=== PATIENT | female | born 1985 | race American Indian/Alaskan Native ===

== ENCOUNTER 2017-08-11 12:15 | Outpatient (CLI) | payer MEDICAID ==
[2017-08-11 12:28] VITALS: BP 126/89
== END 2017-08-11 13:23 | disposition home or self-care (01) ==
LOC: TRG 12:15
PROVIDERS: ATTEND Obstetrics & Gynecology
DX: O47.1 False labor at or after 37 completed weeks of gestation (principal); Z3A.38 38 weeks gestation of pregnancy
CPT/HCPCS: 59025

== ENCOUNTER 2017-08-11 20:10 | Inpatient (IN) | payer MEDICAID ==
[2017-08-11] MEDS ORDERED: LACTATED RINGERS 1,000 ML IV ONE (20:34)
[2017-08-11] MEDS ORDERED: BRETHINE IVP PRN (21:22)
[2017-08-11] MEDS ORDERED: BRETHINE SUB-Q PRN (21:22)
[2017-08-11] MEDS ORDERED: XYLOCAINE 2% INFILTRATI ONE (21:22)
[2017-08-11] MEDS ORDERED: MINERAL OIL PO PRN (21:22)
[2017-08-11] MEDS ORDERED: SUBLIMAZE IV PRN (21:22)
[2017-08-11] MEDS ORDERED: PHENERGAN PO PRN ×2 (21:22→23:28)
[2017-08-11] MEDS ORDERED: ePHEDrine SULFATE IV PRN ×2 (21:22→22:45)
[2017-08-11] MEDS ORDERED: STADOL IV PRN (21:22)
[2017-08-11] MEDS ORDERED: ZOFRAN IV PRN ×2 (21:22→23:28)
--- NOTE | 2017-08-11 21:28 | History and Physical Report ---
History of Present Illness Date of examination: 08/11/17 Chief complaint: Labor History of present illness: Pt is a 32yo BF EDC 08/20/17; EGA 38 5/7 weeks presents to L&D complaining of RUC's q 3-5 mins. She received late care at [facility] since 32 weeks and being followed by [facility]. records are available and GBS is Negative. Past History Past Medical History: no pertinent history Past Surgical History: no surgical history Family/Genetic History: hypertension Social history: no significant social history, - Obstetrical History Expected Date of Delivery: 08/20/17 Actual Gestation: 38 Week(s) 5 Day(s) : 11 Medications and Allergies Allergies Allergy/AdvReac Type Severity Reaction Status Date / Time No Known Allergies Allergy Verified 08/11/17 20:15 Home Medications Medication Instructions Recorded Confirmed Last Taken Type Docusate Sodium [Colace] 100 mg PO BID #60 capsule 05/21/13 Unknown Rx Ferrous Sulfate [Feosol 325 MG tab] 325 mg PO BID #60 tablet 05/21/13 Unknown Rx Active Meds: Active Medications Butorphanol Tartrate (Stadol) 2 mg IV Q2H PRN PRN Reason: Pain , Severe (7-10) Ephedrine Sulfate (Ephedrine Sulfate) 10 mg IV Q2M PRN PRN Reason: Hypotension Fentanyl (Sublimaze) 100 mcg IV Q2H PRN PRN Reason: Labor Pain Lactated Ringer's (Lactated Ringers) 1,000 mls @ 999 mls/hr IV BOLUS ONE Stop: 08/11/17 21:34 Last Admin: 08/11/17 21:01 Dose: 999 mls/hr Lactated Ringer's (Lactated Ringers) 1,000 mls @ 125 mls/hr IV DIRECT ESTRADA Oxytocin/Sodium Chloride (Pitocin/Ns 20 Unit/1000ml Drip) 20 units in 1,000 mls @ 125 mls/hr IV DIRECT ESTRADA Oxytocin/Sodium Chloride (Pitocin/Ns 30 Unit/500ml) 30 units in 500 mls @ 4 mls /hr IV TITR ESTRADA PRN Reason: Protocol Oxytocin/Sodium Chloride (Pitocin/Ns 30 Unit/500ml) 30 units in 500 mls @ 1 mls /hr IV TITR ESTRADA; 1 MILLIUNITS/MIN PRN Reason: Protocol Lidocaine (Xylocaine 2%) 20 ml INFILTRATI ONCE ONE Stop: 08/11/17 21:23 Mineral Oil (Mineral Oil) 30 ml PO QHS PRN PRN Reason: Constipation Ondansetron HCl (Zofran) 4 mg IV Q8H PRN PRN Reason: Nausea And Vomiting Review of Systems All systems: negative - Vital Signs Vital signs: Vital Signs Pulse BP 98 H 126/83 08/11/17 20:25 08/11/17 20:25 Temp Pulse Resp BP Pulse Ox 104 H 126/83 100 08/11/17 21:26 08/11/17 20:25 08/11/17 21:26 - Physical Exam Breasts: Positive: deferred Cardiovascular: Regular rate Lungs: Positive: Clear to auscultation Abdomen: Positive: normal appearance Genitourinary (Female): Positive: normal external genitalia Uterus: Positive: enlarged Extremities: Positive: normal - Obstetrical FHR: category 1 Uterine Contraction Monitor Mode: External Cervical Dilatation: 4.5 Cervical Effacement Percentage: 80 station: -2 Uterine Contraction Pattern: Regular Uterine Tone Measurement Phase: Contraction Uterine Contraction Intensity: Moderate Results Result Diagrams: 08/11/17 21:41 All other labs normal. Assessment and Plan - Patient Problems (1) 38 weeks gestation of Onset Date: 08/11/17 Current Visit: Yes Status: Acute Plan to address problem: A: IUP @ 38 5/7 weeks in labor Grand multigravida Insufficient care P: Admit to L&D for expectant vaginal delivery (2) Grand multipara in labor in third trimester Onset Date: 08/11/17 Current Visit: Yes Status: Acute
[2017-08-11 21:51] LABS: Hemoglobin 11.8 gm/dl (10.1-14.3); Mean Corpuscular HGB Conc 32 % (30-34); Mean Corpuscular Volume 78 fl (79-97); Platelet Count 406 K/mm3 (140-440); Red Blood Count 4.72 M/mm3 (3.65-5.03); Red Cell Distribution Width 15.9 % (13.2-15.2)
[2017-08-11 21:52] LABS: Mean Corpuscular Hemoglobin 25 pg (28-32)
[2017-08-11] MEDS ORDERED: PITOCin/NS 30 UNIT/500ML 30 UNITS/500 ML BAG IV SCH ×2 (22:00)
[2017-08-11] MEDS ORDERED: LACTATED RINGERS 1,000 ML IV SCH (22:00)
[2017-08-11] MEDS ORDERED: PITOCin/NS 20 UNIT/1000ML DRIP 20 UNITS/1,000 ML BAG IV SCH ×2 (22:00→23:45)
[2017-08-11] MEDS ORDERED: fentaNYL-BUPIV 2 MCG/ML-0.125% 200 MCG/100 ML BAG EPIDURAL ONE (22:25)
[2017-08-11] MEDS ORDERED: NARCAN 2 MG/2 ML IV PRN (22:45)
--- NOTE | 2017-08-11 22:45 | Anesthesia Consultation ---
Anesthesia Consult and Med Hx Date of service: 08/11/17 - Airway Anesthetic Teeth Evaluation: Good ROM Head & Neck: Adequate Mental/Hyoid Distance: Adequate Mallampati Class: Class II Intubation Access Assessment: Good - Pulmonary Exam CTA: Yes - Cardiac Exam Cardiac Exam: No Murmur - Pre-Operative Health Status ASA Pre-Surgery Classification: ASA2 Proposed Anesthetic Plan: Epidural - Pulmonary Hx Asthma: No - Cardiovascular System Hx Hypertension: No - Central Nervous System Hx Seizures: No Hx Psychiatric Problems: No - Endocrine Hx Renal Disease: No Hx Hypothyroidism: No Hx Hyperthyroidism: No - Hematic Hx Anemia: No Hx Sickle Cell Disease: No - Other Systems Hx Alcohol Use: No
[2017-08-11] MEDS ORDERED: fentaNYL-BUPIV 2 MCG/ML-0.125% 200 MCG/100 ML BAG EPIDURAL SCH (23:00)
--- NOTE | 2017-08-11 23:26 | Procedure Note ---
OB Delivery Note - Delivery Date of Delivery: 08/11/17 Surgeon: SUMEET OWUSU Estimated blood loss: 200cc - Vaginal Delivery presentation: vertex Delivery position: OA Intrapartum events: precipitous labor- <3hr Delivery induction: none Delivery augmentation: rupture of membranes Delivery monitor: external FHT, external uterine Route of delivery: Delivery placenta: spontaneous Delivery cord: 3 umbilical vessels Episiotomy: none Delivery laceration: none Anesthesia: epidural Delivery comments: Infant delivered OA and placed on Mom's chest for [id number] bonding and delayed cord clamping. - A at 1 minute: 8 at 5 minutes: 9 Infant Gender: Male (3078gms)
[2017-08-11] MEDS ORDERED: BENADRYL PO PRN (23:28)
[2017-08-11] MEDS ORDERED: DULCOLAX PR PRN (23:28)
[2017-08-11] MEDS ORDERED: TYLENOL PO PRN (23:28)
[2017-08-11] MEDS ORDERED: NORCO 5/325 PO PRN (23:28)
[2017-08-11] MEDS ORDERED: MILK OF MAGNESIA PO PRN (23:28)
[2017-08-11] MEDS ORDERED: TUCKS PAD TP PRN (23:28)
[2017-08-11] MEDS ORDERED: PHENERGAN PR PRN (23:28)
[2017-08-11] MEDS ORDERED: LANSINOH TP PRN (23:28)
[2017-08-11] MEDS ORDERED: SODIUM CHLORIDE FLUSH SYRINGE 10 ML IV NR (23:45)
[2017-08-12] MEDS: MOTRIN PO SCH ×3 (02:29→18:03)
[2017-08-12] MEDS: SENOKOT S PO SCH (02:29)
[2017-08-12] MEDS ORDERED: M-M-R II VACCINE SUB-Q ONE (06:00)
[2017-08-12] MEDS ORDERED: BOOSTRIX IM ONE (06:00)
--- NOTE | 2017-08-12 10:50 | Progress Note ---
Assessment and Plan PPD# 1 s/p NDSV -Doing well P: -Continue routine post care -Anticipate discharge in 24-48 hours - Patient Problems (1) (normal spontaneous vaginal delivery) Current Visit: Yes Status: Acute Subjective - Subjective Date of service: 08/12/17 Principal diagnosis: PPD#1 Interval history: Patient seen and examined, stable doing well no issues. Declined circumcision for Patient reports: appetite normal, voiding normally, pain well controlled, ambulating normally, no dizzy ambulation, no nauseated : doing well Objective - Vital Signs Latest vital signs: Vital Signs Temp Pulse Resp BP BP Pulse Ox 08/12/17 08:20 98.3 F 78 18 100/67 08/12/17 04:25 98.2 F 76 18 117/77 08/12/17 02:29 20 08/12/17 01:30 98.6 F 103 H 18 137/89 08/12/17 00:51 83 100 08/12/17 00:46 80 100 08/12/17 00:41 87 97 08/12/17 00:36 86 97 08/12/17 00:34 84 131/76 08/12/17 00:31 87 99 08/12/17 00:26 83 100 08/12/17 00:21 97 H 100 08/12/17 00:19 98 H 128/81 08/12/17 00:16 89 100 08/12/17 00:11 101 H 100 08/12/17 00:10 139 H 124/78 08/11/17 23:28 96 H 136/53 08/11/17 23:25 98.4 F 18 08/11/17 23:09 100 H 100 08/11/17 23:08 90 136/91 08/11/17 23:04 95 H 100 08/11/17 22:59 87 100 08/11/17 22:54 86 100 08/11/17 22:49 83 100 08/11/17 22:44 85 100 08/11/17 22:39 81 100 08/11/17 22:36 88 120/62 08/11/17 22:34 87 118/69 100 08/11/17 22:32 81 118/73 08/11/17 22:30 89 127/79 08/11/17 22:29 88 20 100 08/11/17 22:28 83 126/77 08/11/17 22:27 14 120/62 08/11/17 22:26 82 124/76 08/11/17 22:24 82 128/80 100 08/11/17 22:22 89 123/78 08/11/17 22:20 84 128/78 08/11/17 22:19 85 100 08/11/17 22:18 90 122/68 08/11/17 22:16 90 136/82 08/11/17 22:14 87 138/82 100 08/11/17 22:12 85 139/84 08/11/17 22:10 87 144/99 08/11/17 22:09 93 H 100 08/11/17 22:08 88 152/91 08/11/17 22:06 81 141/66 08/11/17 22:04 86 100 08/11/17 21:53 83 99 08/11/17 21:48 88 100 08/11/17 21:43 98.0 F 95 H 22 100 08/11/17 21:38 92 H 100 08/11/17 21:33 95 H 100 08/11/17 21:26 104 H 100 08/11/17 21:21 96 H 100 08/11/17 21:16 101 H 100 08/11/17 21:11 96 H 99 08/11/17 21:06 86 99 08/11/17 21:01 85 100 08/11/17 20:56 92 H 100 08/11/17 20:51 91 H 100 08/11/17 20:46 89 99 08/11/17 20:41 84 99 08/11/17 20:36 91 H 100 08/11/17 20:31 102 H 100 08/11/17 20:30 97 H 29 L 08/11/17 20:26 100 H 100 08/11/17 20:25 98 H 126/83 Intake and Output 08/11/17 08/12/17 08/12/17 23:59 07:59 15:59 Intake Total 240 240 Output Total 100 1900 Balance -100 -1660 240 Intake: Oral 240 240 Output: Urine 100 1900 Indwelling Catheter 100 500 Void 1400 Other: Total, Intake Amount 240 240 Total, Output Amount 100 600 Weight 63.503 kg Estimated Blood Loss 200 - Exam Abdomen: Present: normal appearance, soft. Absent: distention, tenderness, guarding, rigidity Uterus: Present: firm, fundal height below umbilicus. Absent: tenderness Extremities: Present: normal - Labs Labs: Abnormal lab results 08/11/17 Range/Units 21:41 WBC 12.0 H (4.5-11.0) K/mm3 MCV 78 L (79-97) fl MCH 25 L (28-32) pg RDW 15.9 H (13.2-15.2) %
--- NOTE | 2017-08-12 10:53 | Discharge Summary ---
Providers - Providers Date of Admission: 08/11/17 21:48 Date of discharge: 08/13/17 Attending physician: SUMEET OWUSU Primary care physician: SUMEET OWUSU Hospitalization Reason for admission: active labor, IUP at term Delivery: Episiotomy: none Laceration: none Other procedures: none complications: none Discharge diagnosis: IUP at term delivered [place] baby: male Hospital course: Uncomplicated hospital course Condition at discharge: Good Disposition: DC-01 TO HOME OR SELFCARE - Discharge Diagnoses (1) (normal spontaneous vaginal delivery) Status: Acute Plan - Discharge Medications Prescriptions: HYDROcodone/APAP 5-325 [[place] 5/325] 1 each PO Q6HR PRN #7 tablet PRN Reason: Pain Ibuprofen [Motrin 600 MG tab] 600 mg PO Q8H PRN #30 tablet PRN Reason: Pain Multivitamin with Iron [Multivitamins with Iron] 1 each PO DAILY #30 tablet - Provider Discharge Summary Activity: no sex for 6 weeks, no heavy lifting 4 weeks, no strenuous exercise Diet: routine Additional instructions: [] Smoking cessation referral if applicable(refer to patient education folder for contact #) [] Refer to [facility]'s [facility] Booklet Call your doctor immediately for: * Fever > 100.5 * Heavy vaginal bleeding ( >1 pad per hour) * Severe persistent headache * Shortness of breath * Reddened, hot, painful area to leg or breast * Drainage or odor from incision. * Keep incision clean and dry at all times and follow doctor's instructions regarding bathing/showering - Follow up plan Follow up: SUMEET OWUSU MD [Primary Care Provider] - 6 Weeks
[2017-08-12 12:36] LABS: Hematocrit 33.8 % (30.3-42.9); Hemoglobin 10.8 gm/dl (10.1-14.3)
[2017-08-12] MEDS: FEOSOL PO SCH ×2 (13:29→21:27)
[2017-08-12] MEDS: PRENATAL VITAMIN PO SCH (13:37)
[2017-08-12] MEDS: COLACE PO SCH (21:27)
[2017-08-13] MEDS: MOTRIN PO SCH ×3 (00:03→12:05)
[2017-08-13] MEDS: SENOKOT S PO SCH (00:09)
[2017-08-13] MEDS: PRENATAL VITAMIN PO SCH (10:30)
[2017-08-13] MEDS: FEOSOL PO SCH (12:06)
[2017-08-13] MEDS: COLACE PO SCH (12:06)
[2017-08-13 15:46] VITALS: BP 132/83
== END 2017-08-13 15:30 | disposition home or self-care (01) | DRG 775 ==
LOC: TRG 20:10 → LD 21:48 → OB 08-12 01:43
PROVIDERS: ADMIT Obstetrics & Gynecology; ATTEND Obstetrics & Gynecology
PROC: 10E0XZZ Delivery of Products of Conception, External Approach (ICD-10-PCS; principal; 2017-08-11)
PROC: 3E0R3BZ Introduction of Anesthetic Agent into Spinal Canal, Percutaneous Approach (ICD-10-PCS; 2017-08-11)
PROC: 00HU33Z Insertion of Infusion Device into Spinal Canal, Percutaneous Approach (ICD-10-PCS; 2017-08-11)
PROC: 3E0234Z Introduction of Serum, Toxoid and Vaccine into Muscle, Percutaneous Approach (ICD-10-PCS; 2017-08-12)
DX: O62.3 Precipitate labor (principal); Z3A.38 38 weeks gestation of pregnancy; Z37.0 Single live birth; Z23 Encounter for immunization; Z82.49 Family history of ischemic heart disease and other diseases of the circulatory system
CPT/HCPCS: 36415; 85014; 85018; 85027; 86592; 86850; 86900; 86901; 99211; A6250; G0463; J2590; J3010; J7120

== ENCOUNTER 2019-05-06 02:44 | Emergency (ER) | payer MEDICAID ==
[2019-05-06 03:38] VITALS: BP 133/92
== END 2019-05-06 06:00 | disposition left against medical advice (07) ==
LOC: ED 02:44
DX: Z53.21 Procedure and treatment not carried out due to patient leaving prior to being seen by health care provider (principal)

== ENCOUNTER 2020-08-05 15:02 | Outpatient (CLI) | payer MEDICAID ==
[2020-08-05 17:36] VITALS: BP 131/74
[2020-08-05 20:28] LABS: Alanine Aminotransferase 11 units/L (7-56); Albumin 3.3 g/dL (3.9-5); Blood Urea Nitrogen 6 mg/dL (7-17); Hemolysis Index 11
[2020-08-05 20:45] LABS: BUN/Creatinine Ratio 12
--- NOTE | 2020-08-06 07:41 | Ultrasound Report ---
Limited OB Ultrasound Biophysical profile HISTORY: DECREASED MOVEMENT - VICENTA. TECHNIQUE: Grayscale and color imaging performed. COMPARISON: No recent comparison exam FINDINGS: There is a single viable intrauterine gestation with cephalic presentation. VICENTA is 7.1 cm. Heart rate is 147 bpm. On biophysical profile, the fetus received a score of 2 out of 2 for breathing, movement, posture/ton e, and VICENTA. IMPRESSION: 1. Single viable intrauterine gestation. 2. Normal BPP. Signer Name: Jose He MD Signed: 08/05/2020 10:50 PM Workstation Name: [id number]
== END 2020-08-05 21:49 | disposition home or self-care (01) ==
LOC: TRG 15:02 → APU 15:06 → TRG 21:49
PROVIDERS: ATTEND Obstetrics & Gynecology
DX: O26.893 Other specified pregnancy related conditions, third trimester (principal); L29.9 Pruritus, unspecified; Z3A.37 37 weeks gestation of pregnancy
CPT/HCPCS: 36415; 59025; 76815; 76819; 80053; Q0177

== ENCOUNTER 2020-08-19 04:40 | Inpatient (IN) | payer MEDICAID ==
[2020-08-19 06:10] LABS: Amphetamine Screen,Urine PRESUMPTIVE NEGATIVE; Benzodiazepines Screen,Urine PRESUMPTIVE NEGATIVE; Cannabinoid Screen,Urine PRESUMPTIVE NEGATIVE; Cocaine Screen,Urine PRESUMPTIVE NEGATIVE; Methadone Screen,Urine PRESUMPTIVE NEGATIVE; Opiate Screen,Urine PRESUMPTIVE NEGATIVE
[2020-08-19 06:20] LABS: Bilirubin,Urine NEG (Negative); Blood,Urine NEG (Negative); Color,Urine Straw (Yellow); Mucus,Urine FEW /HPF; Protein,Urine <15 mg/dL mg/dL (Negative); RBC,Urine < 1.0 /HPF (0.0-6.0); Urobilinogen,Urine < 2.0 mg/dL (<2.0); WBC,Urine < 1.0 /HPF (0.0-6.0)
--- NOTE | 2020-08-19 07:21 | History and Physical Report ---
History of Present Illness Date of examination: 08/19/20 Date of admission: 08/19/2020 Chief complaint: LOF. History of present illness: Presented to triage d/t LOF. She has not had care this . LMP: Unknown. States her water broke around 0030, unknown if clear or not. Denies medical/surgical history. OBGYN hx: , X9, denies c-sections. States diagnosed with fibroids. Denies abnormal PAPs, and drug and alcohol use. Past History Past Medical History: no pertinent history Past Surgical History: no surgical history [employer]PA[employer] History: fibroids Family/Genetic History: none Social history: no significant social history - Obstetrical History Expected Date of Delivery: 09/02/20 Actual Gestation: 38 Week(s) 0 Day(s) : 12 Para: 9 Hx # Term Pregnancies: 9 Number of Pregnancies: 0 Spontaneous Abortions: 2 Induced : 0 Number of Living Children: 9 Medications and Allergies Allergies Allergy/AdvReac Type Severity Reaction Status Date / Time No Known Allergies Allergy Verified 08/11/17 20:15 Home Medications Medication Instructions Recorded Confirmed Last Taken Type HYDROcodone/APAP 5-325 [[place] 1 each PO Q6HR PRN #7 tablet 08/12/17 Unknown Rx 5/325] Ibuprofen [Motrin 600 MG tab] 600 mg PO Q8H PRN #30 tablet 08/12/17 Unknown Rx Multivitamin Tab [Multiple Vitamin 1 each PO QDAY 08/12/17 08/12/17 2 Days Ago History TAB (Theragran)] ~08/10/17 Multivitamin with Iron 1 each PO DAILY #30 tablet 08/12/17 Unknown Rx [Multivitamins with Iron] Review of Systems All systems: negative - Vital Signs Vital signs: Vital Signs Pulse BP 91 H 135/81 08/19/20 05:10 08/19/20 05:10 Temp Pulse Resp BP Pulse Ox 98.3 F 93 H 18 135/81 100 08/19/20 05:12 08/19/20 07:16 08/19/20 05:12 08/19/20 05:12 08/19/20 07:16 - Physical Exam Breasts: Positive: deferred Cardiovascular: Regular rate, Normal S1, Normal S2 Lungs: Positive: Normal air movement Abdomen: Positive: normal appearance, soft, normal bowel sounds. Negative: distention, tenderness Genitourinary (Female): Positive: normal external genitalia, normal perenium Vulva: both: normal Vagina: Positive: normal moisture. Negative: discharge Cervix: Negative: lesion, discharge Uterus: Positive: normal size, normal contour Adnexa: both: normal Anus/Rectum: Positive: normal perianal skin, heme negative. Negative: rectal mass, hemorrhoids Extremities: Positive: normal Deep Tendon Reflex Grade: Normal +2 - Obstetrical FHR: category 1 (Has had periods of category 2. BPP 6/8 (off for fluid). ) Uterine Contraction Monitor Mode: External Cervical Dilatation: 4 (Meconium noted on exam glove) Cervical Effacement Percentage: 80 station: -2 Uterine Contraction Pattern: Regular Uterine Tone Measurement Phase: Resting Uterine Contraction Intensity: Moderate Results All other labs normal. GBS UNKNOWN LABS DRAWN ON ADMISSION. Assessment and Plan 35 y.o. @ 38 wks, EDC 09/02/2020 based off u/s in triage on 12/15 AM. LOF,meconium, and ctxs. Cervical exam 80/-2. No care. Admit to labor and delivery. Orders placed. IV bolus started for epidural placement. Dr. Flores made aware. Anticipate . - Patient Problems (1) 38 to 41 weeks gestation of Onset Date: ~08/19/20 Current Visit: Yes Status: Acute Plan to address problem: Category 1 at this time with some intermittent category 2. Will continue to observe during labor. (2) No care in current Onset Date: ~08/19/20 Current Visit: Yes Status: Acute Qualifiers: Trimester: third trimester Qualified Code(s): O09.33 - Supervision of with insufficient care, third trimester Plan to address problem: UDS, labs, ordered. (3) Meconium in amniotic fluid Onset Date: ~08/19/20 Current Visit: Yes Status: Acute Plan to address problem: Will have [facility] nurse/team at delivery d/t meconium stained fluid.
[2020-08-19] MEDS ORDERED: ePHEDrine SULFATE 50 MG/1 ML INJ IV PRN (07:22)
[2020-08-19] MEDS ORDERED: METHYLERGONOVINE MALEATE 0.2 MG/ML VIAL IM PRN (07:22)
[2020-08-19] MEDS ORDERED: OXYTOCIN 10 UNIT/1 ML INJ IM PRN (07:22)
[2020-08-19] MEDS ORDERED: ACETAMINOPHEN 325 MG TAB PO PRN ×2 (07:22→10:29)
[2020-08-19] MEDS ORDERED: NALOXONE 0.4 MG/1 ML INJ IV PRN (07:22)
[2020-08-19] MEDS ORDERED: LIDOCAINE (2%) 20 MG/1 ML VIAL 20 ML MDV INFILTRATI NR (07:22)
[2020-08-19] MEDS ORDERED: LOPERAMIDE 2 MG CAP PO PRN (07:22)
[2020-08-19] MEDS ORDERED: ONDANSETRON 4 MG/2 ML INJ IV PRN ×2 (07:22→11:00)
[2020-08-19] MEDS ORDERED: CARBOPROST TROMETHAMINE 250 MCG/1 ML INJ IM PRN (07:22)
--- NOTE | 2020-08-19 07:25 | Ultrasound Report ---
ULTRASOUND OBSTETRIC INDICATION: Evaluate well-being COMPARISON: Limited obstetrical ultrasound, 08/05/2020 Findings: There is a single intrauterine . BPD = 9.0 cm = 36 weeks, 3 day(s). Head circumference = 33.6 cm = 38 weeks, 3 day(s). Abdominal circumference = 34.3 cm = 38 weeks, 1 day(s). Femur length = 7.6 cm = 38 weeks, 6 day(s). Overall estimated sonographic age = 38 weeks, 0 day(s). heart rate is 139 beats per minute. Estimated weight is 3408 grams position is cephalic. Placenta is anterior and grade 2 . Amniotic fluid volume appears subjectively decreased. VICENTA measures 3.2 cm. There is a fibroid within the anterior aspect of the uterus measuring 4.0 x 3.0 cm. Impression: 1. Single living intrauterine with estimated sonographic age of 38 weeks, 0 day(s). 2. Decreased amniotic fluid volume with VICENTA measuring 3.2 cm. Signer Name: Terri Owens MD Signed: 08/19/2020 7:20 AM Workstation Name: [id number]
--- NOTE | 2020-08-19 07:27 | Ultrasound Report ---
ULTRASOUND BIOPHYSICAL PROFILE INDICATION / CLINICAL INFORMATION: Evaluate well-being COMPARISON: Obstetrical ultrasound, 08/19/2020 FINDINGS: BREATHING MOVEMENT = 2 GROSS BODY MOVEMENT = 2 TONE = 2 QUALITATIVE AMNIOTIC FLUID VOLUME = 0 TOTAL BIOPHYSICAL SCORE = 6/8 AMNIOTIC FLUID INDEX (cm) = 3.2 PRESENTATION: Cephalic. HEART RATE (beats per minute): 141 IMPRESSION: 1. biophysical profile = 6/8. Amniotic fluid volume is noted to be decreased with VICENTA measuring 3.2 cm. Signer Name: Terri Owens MD Signed: 08/19/2020 7:22 AM Workstation Name: [id number]
[2020-08-19] MEDS ORDERED: ACETAMINOPHEN 500 MG TAB PO PRN ×2 (07:33→11:00)
[2020-08-19] MEDS ORDERED: fentaNYL 100 MCG/2 ML INJ IV PRN (08:00)
[2020-08-19] MEDS ORDERED: TERBUTALINE 1 MG/1 ML INJ SUB-Q PRN (08:00)
[2020-08-19] MEDS: LACTATED RINGERS 1,000 ML IV SCH ×2 (08:00→09:30)
[2020-08-19] MEDS ORDERED: PROMETHAZINE 25 MG TAB PO PRN ×2 (08:00→11:00)
[2020-08-19] MEDS ORDERED: OXYTOCIN DRIP 30 UNITS/500 ML BAG IV SCH (08:00)
[2020-08-19 08:17] LABS: Hematocrit 36.6 % (30.3-42.9); Hemoglobin 11.9 gm/dl (10.1-14.3); Mean Corpuscular HGB Conc 33 % (30-34); Mean Corpuscular Volume 83 fl (79-97); Platelet Count 470 K/mm3 (140-440); Red Blood Count 4.43 M/mm3 (3.65-5.03); Red Cell Distribution Width 15.9 % (13.2-15.2)
--- NOTE | 2020-08-19 09:16 | Progress Note ---
Assessment and Plan A: 35 y.o. @ 38 wks, no PNC, active labor. Cervical exam: 7.5/90/-1. P: Awaiting epidural placement. Anticipate . - Patient Problems (1) 38 to 41 weeks gestation of Onset Date: ~08/19/20 Current Visit: Yes Status: Acute (2) No care in current Onset Date: ~08/19/20 Current Visit: Yes Status: Acute Qualifiers: Trimester: third trimester Qualified Code(s): O09.33 - Supervision of with insufficient care, third trimester (3) Meconium in amniotic fluid Onset Date: ~08/19/20 Current Visit: Yes Status: Acute Subjective - Subjective Date of service: 08/19/20 (Pt feeling vaginal pressure) Principal diagnosis: No care, IUP @ 38 wks, Active labor Interval history: Presented to triage d/t LOF. She has not had care this . LMP: Unknown. States her water broke around 0030, unknown if clear or not. Denies medical/surgical history. OBGYN hx: , X9, denies c-sections. States diagnosed with fibroids. Denies abnormal PAPs, and drug and alcohol use. Patient reports: loss of fluid, movement normal, contractions, other (Vaginal pressure) Objective - Vital Signs Vital Signs: Vital Signs - 12hr 08/19/20 08/19/20 08/19/20 05:10 05:11 05:12 Temperature 98.3 F Pulse Rate 91 H 96 H 93 H Respiratory 18 Rate Blood Pressure 135/81 Blood Pressure 135/81 [Right] O2 Sat by Pulse 99 99 Oximetry 08/19/20 08/19/20 08/19/20 05:16 05:21 05:26 Temperature Pulse Rate 94 H 94 H 108 H Respiratory Rate Blood Pressure Blood Pressure [Right] O2 Sat by Pulse 99 99 100 Oximetry 08/19/20 08/19/20 08/19/20 05:31 05:36 05:41 Temperature Pulse Rate 101 H 108 H 96 H Respiratory Rate Blood Pressure Blood Pressure [Right] O2 Sat by Pulse 100 99 99 Oximetry 08/19/20 08/19/20 08/19/20 05:46 05:51 05:56 Temperature Pulse Rate 93 H 98 H 98 H Respiratory Rate Blood Pressure Blood Pressure [Right] O2 Sat by Pulse 99 99 99 Oximetry 08/19/20 08/19/20 08/19/20 06:01 06:06 06:11 Temperature Pulse Rate 93 H 92 H 100 H Respiratory Rate Blood Pressure Blood Pressure [Right] O2 Sat by Pulse 99 99 99 Oximetry 08/19/20 08/19/20 08/19/20 06:15 06:16 06:21 Temperature Pulse Rate 115 H 94 H 107 H Respiratory Rate Blood Pressure Blood Pressure [Right] O2 Sat by Pulse 94 99 100 Oximetry 08/19/20 08/19/20 08/19/20 06:26 06:31 06:36 Temperature Pulse Rate 93 H 96 H 90 Respiratory Rate Blood Pressure Blood Pressure [Right] O2 Sat by Pulse 100 100 100 Oximetry 08/19/20 08/19/20 08/19/20 06:41 06:46 06:51 Temperature Pulse Rate 103 H 92 H 95 H Respiratory Rate Blood Pressure Blood Pressure [Right] O2 Sat by Pulse 99 100 100 Oximetry 08/19/20 08/19/20 08/19/20 06:56 07:01 07:06 Temperature Pulse Rate 102 H 105 H 109 H Respiratory Rate Blood Pressure Blood Pressure [Right] O2 Sat by Pulse 99 100 98 Oximetry 08/19/20 08/19/20 08/19/20 07:11 07:16 07:21 Temperature Pulse Rate 96 H 93 H 105 H Respiratory Rate Blood Pressure Blood Pressure [Right] O2 Sat by Pulse 100 100 98 Oximetry 08/19/20 08/19/20 08/19/20 07:26 07:31 07:35 Temperature Pulse Rate 105 H 95 H 95 H Respiratory Rate Blood Pressure Blood Pressure [Right] O2 Sat by Pulse 100 100 92 Oximetry 08/19/20 08/19/20 08/19/20 07:36 07:41 07:46 Temperature Pulse Rate 100 H 108 H 110 H Respiratory Rate Blood Pressure Blood Pressure [Right] O2 Sat by Pulse 100 99 100 Oximetry 08/19/20 08/19/20 08/19/20 07:51 07:56 08:01 Temperature Pulse Rate 108 H 106 H 94 H Respiratory Rate Blood Pressure Blood Pressure [Right] O2 Sat by Pulse 100 100 99 Oximetry 08/19/20 08/19/20 08/19/20 08:06 08:11 08:16 Temperature Pulse Rate 88 83 86 Respiratory Rate Blood Pressure Blood Pressure [Right] O2 Sat by Pulse 96 98 98 Oximetry 08/19/20 08/19/20 08/19/20 08:21 08:26 08:31 Temperature Pulse Rate 89 87 97 H Respiratory Rate Blood Pressure Blood Pressure [Right] O2 Sat by Pulse 98 100 98 Oximetry 08/19/20 08/19/20 08/19/20 08:36 08:41 08:42 Temperature Pulse Rate 103 H 86 94 H Respiratory Rate Blood Pressure 129/76 Blood Pressure [Right] O2 Sat by Pulse 99 97 Oximetry 08/19/20 08/19/20 08/19/20 08:46 08:51 08:56 Temperature Pulse Rate 89 92 H 93 H Respiratory Rate Blood Pressure Blood Pressure [Right] O2 Sat by Pulse 99 100 100 Oximetry 08/19/20 08/19/20 08/19/20 09:01 09:06 09:11 Temperature Pulse Rate 101 H 109 H 114 H Respiratory Rate Blood Pressure Blood Pressure [Right] O2 Sat by Pulse 100 99 99 Oximetry - Exam Vulva: both: normal Uterus: Present: normal FHR: category 1 Uterine Contraction Monitor Mode: External Cervical Dilatation: 7.5 Cervical Effacement Percentage: 90 station: -1 Uterine Contraction Pattern: Regular Uterine Tone Measurement Phase: Resting Uterine Contraction Intensity: Moderate - Labs Labs: Abnormal Labs 08/19/20 07:35 WBC 11.3 H MCH 27 L RDW 15.9 H Plt Count 470 H Laboratory Results - last 24 hr 08/19/20 08/19/20 08/19/20 07:35 07:35 07:35 WBC 11.3 H RBC 4.43 Hgb 11.9 Hct 36.6 MCV 83 MCH 27 L MCHC 33 RDW 15.9 H Plt Count 470 H Urine Color Urine Turbidity Urine pH Ur Specific [place] Urine Protein Urine Glucose (UA) Urine Ketones Urine Blood Urine Nitrite Urine Bilirubin Urine Urobilinogen Ur Leukocyte Esterase Urine WBC (Auto) Urine RBC (Auto) U Epithel Cells (Auto) Urine Mucus Urine Opiates Screen Urine Methadone Screen Ur Barbiturates Screen Ur Phencyclidine Scrn Ur Amphetamines Screen U Benzodiazepines Scrn Urine Cocaine Screen U Marijuana (THC) Screen Drugs of Abuse Note HIV 1&2 Antibody Rapid Non react HIV P24 Antigen Non react Rubella IgG Antibody Immune Blood Type A POSITIVE Antibody Screen Negative 08/19/20 08/19/20 Unknown Unknown WBC RBC Hgb Hct MCV MCH MCHC RDW Plt Count Urine Color Straw Urine Turbidity Clear Urine pH 7.0 Ur Specific [place] 1.008 Urine Protein <15 mg/dl Urine Glucose (UA) Neg Urine Ketones Neg Urine Blood Neg Urine Nitrite Neg Urine Bilirubin Neg Urine Urobilinogen < 2.0 Ur Leukocyte Esterase Neg Urine WBC (Auto) < 1.0 Urine RBC (Auto) < 1.0 U Epithel Cells (Auto) 1.0 Urine Mucus Few Urine Opiates Screen Presumptive negative Urine Methadone Screen Presumptive negative Ur Barbiturates Screen Presumptive negative Ur Phencyclidine Scrn Presumptive negative Ur Amphetamines Screen Presumptive negative U Benzodiazepines Scrn Presumptive negative Urine Cocaine Screen Presumptive negative U Marijuana (THC) Screen Presumptive negative Drugs of Abuse Note Disclamer HIV 1&2 Antibody Rapid HIV P24 Antigen Rubella IgG Antibody Blood Type Antibody Screen
[2020-08-19] MEDS ORDERED: miSOPROStol 200 MCG TAB ONE (10:06)
[2020-08-19] MEDS: OXYTOCIN DRIP 30 UNITS/500 ML BAG IV SCH ×2 (10:06→11:43)
[2020-08-19] MEDS ORDERED: miSOPROStol 200 MCG TAB PR ONE (10:12)
--- NOTE | 2020-08-19 10:28 | Procedure Note ---
OB Delivery Note - Delivery Date of Delivery: 08/19/20 Compositor Apprentice: KATALINA COVARRUBIAS Estimated blood loss: 500cc - Vaginal Delivery presentation: vertex Delivery position: OA Intrapartum events: no care, meconium Delivery induction: none Delivery monitor: external FHT, external uterine Route of delivery: Delivery placenta: spontaneous Delivery cord: 3 umbilical vessels Episiotomy: none Delivery laceration: none Anesthesia: epidural Delivery comments: viable male over intact perineum. Infant to mother's chest for skin to skin. Cord cut and clamped and infant handed to [facility] team. Spontaneous delivery of placenta, intact, 3 vessels noted. Brisk bleeding noted after delivery. Stopped with Pitocin, Methergine IM, and rectal cytotec. Fundus firm with minimal bleeding after interventions. Perineum and vagina inspected, no lacerations noted. Sponges and instruments counted X 2 and correct X2. Infant and mother left in the care of the nurse in good condition. - Infant A at 1 minute: 8 at 5 minutes: 8 Gender: Male
[2020-08-19] MEDS ORDERED: LANOLIN/ZINC/DIMETHICONE (LANSINOH) 7 GM TP PRN ×2 (10:29→11:00)
[2020-08-19] MEDS ORDERED: diphenhydrAMINE 25 MG CAP PO PRN (11:00)
[2020-08-19] MEDS ORDERED: WITCH HAZEL/ GLYCERIN PAD TP PRN (11:00)
[2020-08-19] MEDS ORDERED: IBUPROFEN 800 MG TAB PO ONE (11:00)
[2020-08-19] MEDS ORDERED: IBUPROFEN 600 MG TAB PO SCH (11:00)
[2020-08-19] MEDS ORDERED: BENZOCAINE/MENTHOL 20/0.5% TOP SPRAY 56 GM TP PRN (11:00)
[2020-08-19] MEDS: IBUPROFEN 800 MG TAB PO SCH ×2 (11:57→18:15)
[2020-08-19 13:41] LABS: Hepatitis C Virus Antibody Non-Reactive (NonReactive)
--- NOTE | 2020-08-19 15:14 | Anesthesia Consultation ---
Anesthesia Consult and Med Hx Date of service: 08/19/20 - Airway Anesthetic Teeth Evaluation: Good ROM Head & Neck: Adequate Mental/Hyoid Distance: Adequate Mallampati Class: Class II Intubation Access Assessment: Probably Good - Pulmonary Exam CTA: Yes - Cardiac Exam Cardiac Exam: RRR - Pre-Operative Health Status ASA Pre-Surgery Classification: ASA2 Proposed Anesthetic Plan: Epidural - Pulmonary Hx Smoking: No Hx Asthma: No Hx Respiratory Symptoms: No SOB: No COPD: No Home Oxygen Therapy: No Hx Pneumonia: No Hx Sleep Apnea: No - Cardiovascular System Hx Hypertension: No Hx Coronary Artery Disease: No Hx Heart Attack/AMI: No Hx Angina: No Hx Percutaneous Transluminal Coronary Angioplasty (PTCA): No Hx Cardia Arrhythmia: No Hx Pacemaker: No Hx Internal Defibrillator: No Hx Valvular Heart Disease: No Hx Heart Murmur: No Hx Peripheral Vascular Disease: No - Central Nervous System Hx Neuromuscular Disorder: No Hx Seizures: No CVA: No Hx Back Pain: No Hx Psychiatric Problems: No - Gastrointestinal Hx Ulcer: No Hx Gastroesophageal Reflux Disease: No - Endocrine Hx Renal Disease: No Hx End Stage Renal Disease: No Hx Cirrhosis: No Hx Liver Disease: No Hx Insulin Dependent Diabetes: No Hx Non-Insulin Dependent Diabetes: No Hx Thyroid Disease: No Hx Hypothyroidism: No Hx Hyperthyroidism: No - Hematic Hx Anemia: No Hx Sickle Cell Disease: No - Other Systems Hx Alcohol Use: No Hx Substance Use: No Hx Cancer: No Hx Obesity: No
--- NOTE | 2020-08-19 15:19 | Progress Note ---
Labor Epidural - Labor Epidural Start Time: 09:15 Stop Time: :25 Performed by:: JEREMIAH BOLNAD Procedure: Patient is requesting a laboring epidural for laboring pain. Patient IDed, H&P reviewed, all questions and concerns were answered, and consent was signed. Timeout was performed at bedside. Patient in sitting position. Sterile prep and drape was performed. 3ml of 1% lidocaine skin wheal at L[3]- L [4]. 18- gauge Tuohy epidural needle was advanced to loss of resistance with air technique at 7cm. Negative CSF negative blood. Epidural catheter advanced to [12] centimeters. [negative] Aspiration [negative] test dose. Sterile dressing applied. Patient tolerated procedure.
--- NOTE | 2020-08-19 15:20 | Post Anesthesia Evaluation ---
- Post Anesthesia Evaluation Patient Participated: Yes Airway Patent: Yes Stable Respiratory Function: Yes Nausea/Vomiting: No Temp > 96.8F: Yes Pain Manageable: Yes Adequeate Hydration: Yes Anesthesia Complications: No Block Receding Appropriately: Yes Patient on Ventilator: No
[2020-08-19] MEDS ORDERED: MAGNESIUM HYDROXIDE (MOM) ORAL LIQD UDC PO PRN (22:00)
[2020-08-19] MEDS ORDERED: MINERAL OIL 30 ML ORAL LIQD PO PRN (22:00)
[2020-08-20] MEDS: DOCUSATE SODIUM 100 MG CAP PO SCH (00:01)
[2020-08-20 00:36] LABS: Hematocrit 32.3 % (30.3-42.9); Hemoglobin 10.6 gm/dl (10.1-14.3)
[2020-08-20] MEDS: IBUPROFEN 800 MG TAB PO SCH ×2 (06:08)
--- NOTE | 2020-08-20 06:09 | Discharge Summary ---
Providers - Providers Date of Admission: 08/19/20 08:05 Date of discharge: 08/20/20 (pt states she will f/u with [facility]) Attending physician: GABINO CASTRO 08/19/20 10:31 Consult to Case Management [CONS] Routine Services Needed at Discharge: Other Notified:: VICKI Comment:: MARTIN Additional Physician Instructions: No care. Make sure patient has all she needs for at home. Primary care physician: GABINO CASTRO Hospitalization Reason for admission: active labor, IUP at term, other (no care) Delivery: Episiotomy: none Laceration: none Incision: normal Other procedures: none complications: none Discharge diagnosis: IUP at term delivered baby: male Hospital course: uncomplicated vaginal delivery; grandmultip; no care Pt A&O caring for NB. Req d/c today if possible. States she will f/u with [facility]. VSS FF below umb Lochia mod Perineum intact H&H No s/sx of anemia. P: continue pathway d/c today with instructions if NB is cleared to go. Condition at discharge: Good Disposition: DC-01 TO HOME OR SELFCARE - Discharge Diagnoses (1) Spontaneous vaginal delivery Status: Acute Comment: follow up 4-6 weeks for PP care Plan - Provider Discharge Summary Activity: routine, no sex for 6 weeks, no heavy lifting 4 weeks, no strenuous exercise Diet: routine Instructions: routine Additional instructions: [] Smoking cessation referral if applicable(refer to patient education folder for contact #) [] Refer to [facility] Booklet Call your doctor immediately for: * Fever > 100.5 * Heavy vaginal bleeding ( >1 pad per hour) * Severe persistent headache * Shortness of breath * Reddened, hot, painful area to leg or breast * Drainage or odor from incision. * Keep incision clean and dry at all times and follow doctor's instructions regarding bathing/showering - Follow up plan Follow up: GABINO CASTRO MD [Primary Care Provider] - 6 Weeks (Please call and make arrangements to be seen in 4-6 weeks for your care. Motrin/ibuprofen for cramping/pain. Congratulations!)
[2020-08-20] MEDS ORDERED: PRENATAL VIT27-FE FUMARATE-FOLIC ACID VIT TAB PO SCH (10:00)
[2020-08-20] MEDS ORDERED: DIPHtheria,PERTUSSIS(ACELL),TETANUS VACCINE/PF 0.5 ML VIAL IM ONE (10:30)
[2020-08-21] MEDS: IBUPROFEN 800 MG TAB PO SCH ×3 (02:13→11:58)
[2020-08-21] MEDS: DOCUSATE SODIUM 100 MG CAP PO SCH ×2 (02:18→11:58)
[2020-08-21 15:45] VITALS: BP 118/73
== END 2020-08-21 15:50 | disposition home or self-care (01) | DRG 775 ==
LOC: TRG 04:40 → APU 04:42 → TRG 07:52 → APU 08:05 → OB 12:03
PROVIDERS: ADMIT Obstetrics & Gynecology; ATTEND Obstetrics & Gynecology
PROC: 10E0XZZ Delivery of Products of Conception, External Approach (ICD-10-PCS; principal; 2020-08-19)
PROC: 3E0234Z Introduction of Serum, Toxoid and Vaccine into Muscle, Percutaneous Approach (ICD-10-PCS; 2020-08-19)
PROC: 3E0134Z Introduction of Serum, Toxoid and Vaccine into Subcutaneous Tissue, Percutaneous Approach (ICD-10-PCS; 2020-08-19)
DX: O77.0 Labor and delivery complicated by meconium in amniotic fluid (principal); Z20.828 Contact with and (suspected) exposure to other viral communicable diseases; O34.13 Maternal care for benign tumor of corpus uteri, third trimester; Z37.0 Single live birth; Z3A.38 38 weeks gestation of pregnancy; Z79.899 Other long term (current) drug therapy
CPT/HCPCS: 36415; 59025; 76805; 76819; 80307; 81001; 85014; 85018; 85027; 86592; 86706; 86762; 86803; 86850; 86900; 86901; 87806; 96360; 96365; G0378; J2210; J2405; J2590; J3010; J7120; U0003